=== PATIENT | male | born 1980 | race Caucasian/White ===

== ENCOUNTER 2020-04-21 11:13 | Emergency (ER) | payer MEDICAID, SELFPAY ==
--- NOTE | 2020-04-21 11:23 | XR_ITS ---
EXAMINATION: RIGHT ANKLE AND RIGHT FOOT. CLINICAL INFORMATION: Fall. COMPARISON: None TECHNIQUE: 3 views right ankle and 3 views right foot. FINDINGS: RIGHT ANKLE: There is no visible acute fracture, dislocation or subluxation seen. Small bony fragment is seen along the calcaneal-talar joint likely a small avulsion fracture with mild lateral malleolar soft tissue swelling. The ankle mortise and subtalar joints are normal.. RIGHT FOOT: There is there is a fracture line seen extending through the calcaneum suggestive of a minimally displaced calcaneal fracture. Mild soft tissue swelling seen. Rest the foot is unremarkable. XR/XR foot RT min 3V IMPRESSION: Small avulsion fracture fragment along the lateral calcaneal talar joint. Exact site of origin is not known. Mild lateral malleolar soft tissue swelling. Suspect minimally displaced oblique calcaneal fracture and soft tissue swelling on right foot exam. Recommend CT evaluation.
--- NOTE | 2020-04-21 11:23 | ED_ITS ---
HPI - Fall General Chief Complaint: Fall Stated Complaint: ANKLE INJ,FELL Time Seen by Provider: 04/21/20 11:22 Source: patient Mode of arrival: ambulatory Limitations: no limitations History of Present Illness HPI Narrative: fell into pool that had water while at work - landed hard on R ankle and heard a pop complaint: fall Onset (ago): minute(s) (just [employer]) Fall from: from height (distance) (?10 feet) Fall witnessed: yes, by bystander Place fall occurred: work Loss of consciousness: none Prolonged down time: no Symptoms prior to fall: none Context: tripped/slipped Location of injury - extremities: right: ankle Severity: severe Quality: sharp Associated symptoms (after fall): denies Related Data Previous Rx's Medication Instructions Recorded hydrocodone-acetaminophen 1 tab PO Q6H PRN #25 tab 04/21/20 Allergies Allergy/AdvReac Type Severity Reaction Status Date / Time shellfish derived Allergy Unknown Verified 04/21/20 11:22 Review of Systems Review of Systems: Constitutional : No Fever, No Chills ENT/Mouth : No Ear Pain, No Hoarseness, No sore throat Eyes: No Eye Pain, No Swelling, No Redness, No Foreign Body Cardiovascular : No Chest Pain, No SOB Respiratory : No Cough, No Dyspnea Gastrointestinal : No Nausea, No Vomiting, No Diarrhea, No abdominal Pain Genitourinary : No Dysuria, No Hematuria Musculoskeletal : positive joint pain, No Myalgias, No Joint Swelling Skin : No Skin lacerations, No rash Neuro : No Weakness, No Numbness, No Loss of Consciousness, No Dizziness, No Headache All other systems reviewed and are negative [facility] Past Medical History Attestation statement: The following information was validated with the patient. Medical History Hepatitis Social History Social History (Updated 04/21/20 @ 11:52 by Kerline Wills DO) Smoking Status: Current every day smoker Advance Directives: No Advance Directives Information Provided: No Physical Exam Vital Signs: Vital Signs: Last Vital Signs Temp 98.2 F 04/21/20 12:00 Pulse 88 04/21/20 12:00 Resp 16 04/21/20 12:00 BP 114/71 04/21/20 12:00 Pulse Ox 97 04/21/20 12:00 Body Mass Index 20.1 Appearance: Alert. Oriented X3. agitated, in pain, mild acute distress. Eyes: Pupils equal, round and reactive to light. ENT: Pharynx normal. Neck: Normal inspection. Neck supple. CVS: Normal heart rate and rhythm. Pulses normal. Respiratory: No respiratory distress. Breath sounds normal. Abdomen: Soft and nontender. Skin: Skin warm and dry. Normal skin color. Normal skin turgor. Extremities: No lower extremity edema. R ankle distal NV intact but pain around lateral malleolus and achilles area Neuro: Oriented X 3. No motor deficit. No sensory deficit. Course Course Course Narrative: CT scan ordered for better eval of calcaneal fracture significant calcaneal fracture, added on lumbar spine given heel fracture and possible concomitant injury orthopedics call 1245pm - want calcaneal views call to Les[facility] - [facility], [facility], follow up Monday with Dr. Madrid now wants to follow up with his doctor on Monday [place], given discs to go home with Procedures Orthopedic Splinting/Casting Injury #1: Side: right Lower Extremity Injury Location: foot Lower Extremity Immobilizer: posterior splint Other Orthopedic Equipment: crutches Additional Comments: significant padding placed MDM - Fall MDM Narrative Medical decision making narrative: 39 yo male with fall at work isolated R ankle injury NV intact, no obvious deformity but swelling noted, no prox fibula ttp - will need labs, xray, IV dilaudid for pain - no other injuries noted Lab Data Result diagrams: 04/21/20 12:29 04/21/20 12:28 Labs: Lab Results 04/21/20 04/21/20 04/21/20 Range/Units 12:28 12:28 12:29 WBC 15.7 H (4.8-10.8) X10*3/uL RBC 5.21 (4.60-5.80) X10*6/uL Hgb 16.0 (14.0-18.0) g/dl Hct 47.4 (42-52) % MCV 91.0 (80-98) fL MCH 30.7 (27.0-33.0) pg MCHC 33.8 (31.0-36.0) g/dl RDW 13.7 (11.0-16.0) % Plt Count 319 (160-400) X10*3/uL MPV 9.4 (9.4-12.4) fL Immature Gran % (Auto) 0.5 H (0.0-0.4) % Neut % (Auto) 80.7 H (45-73) % Lymph % (Auto) 12.4 L (20-40) % [place] % (Auto) 5.3 (2-11) % Eos % (Auto) 0.8 (0-4) % Baso % (Auto) 0.3 (0-2) % Lymph # (Auto) 2.0 (1.2-4.9) X10*3/uL [place] # (Auto) 0.8 (0.1-1.2) X10*3/uL Eos # (Auto) 0.1 (0.0-0.4) X10*3/uL Baso # (Auto) 0.0 (0.0-0.2) X10*3/uL Abs Immat Gran (auto) 0.08 H (0.00-0.03) X10*3/uL Absolute Neuts (auto) 12.7 H (2.0-8.3) X10*3/uL Absolute Nucleated RBC 0.000 (0.0-0.012) X10*3/uL Nucleated RBC % (auto) 0.0 (0.0-0.2) /100WBC Hold Blue Top SEE NOTE Sodium 145 (135-145) mmol/L Potassium 4.1 (3.3-5.1) mmol/l Chloride 107 (96-108) mmol/L Carbon Dioxide 28 (22-29) mmol/L Anion Gap 14 (12-20) BUN 11 (9-16) mg/dL Creatinine 1.11 (0.5-1.4) mg/dL Estim Creat Clear Calc 72.3 Estimated GFR > 60 Random Glucose 89 (60-115) mg/dL Calcium 8.9 (8.4-10.2) mg/dL Discharge Plan Discharge Clinical Impression: Calcaneal fracture Qualifiers: Encounter type: initial encounter Calcaneus location: body Fracture type: closed Fracture alignment: displaced Laterality: right Qualified Code(s): S92.011A - Displaced fracture of body of right calcaneus, initial encounter for closed fracture Patient Disposition: Home, Self-Care Instructions: Calcaneal Fracture (ED) Additional Instructions: return to ED for any worsening symptoms or concerns no weight bearing, wear splint until released USE CRUTCHES YOU NEED TO SEE AN ORTHOPEDIC DOCTOR SOON POSSIBLE AT THE START OF NEXT WEEK Prescriptions: New hydrocodone-acetaminophen 5-325 mg tablet 1 tab PO Q6H PRN (Reason: pain) Qty: 25 RF: 0 Stand Alone Forms: Work/School Release
--- NOTE | 2020-04-21 11:23 | XR_ITS ---
EXAMINATION: RIGHT ANKLE AND RIGHT FOOT. CLINICAL INFORMATION: Fall. COMPARISON: None TECHNIQUE: 3 views right ankle and 3 views right foot. FINDINGS: RIGHT ANKLE: There is no visible acute fracture, dislocation or subluxation seen. Small bony fragment is seen along the calcaneal-talar joint likely a small avulsion fracture with mild lateral malleolar soft tissue swelling. The ankle mortise and subtalar joints are normal.. RIGHT FOOT: There is there is a fracture line seen extending through the calcaneum suggestive of a minimally displaced calcaneal fracture. Mild soft tissue swelling seen. Rest the foot is unremarkable. XR/XR ankle RT min 3V IMPRESSION: Small avulsion fracture fragment along the lateral calcaneal talar joint. Exact site of origin is not known. Mild lateral malleolar soft tissue swelling. Suspect minimally displaced oblique calcaneal fracture and soft tissue swelling on right foot exam. Recommend CT evaluation.
[2020-04-21 11:25] VITALS: BP 118/78; PULSE 82; RESP 26; TEMP 36.7; O2SAT 100; BMI 20.1
[2020-04-21] MEDS: ondansetron HCL 4 MG/2 ML VIAL IVPUSH (11:57)
[2020-04-21] MEDS: HYDROmorphone HCl 1 MG/ML SYRINGE IVPUSH (11:57)
[2020-04-21] MEDS: 0.9 % Sodium Chloride 1,000 ML 999 ML IVCONT (11:57)
[2020-04-21 12:00] VITALS: BP 114/71; PULSE 88; RESP 16; TEMP 36.8; O2SAT 97
--- NOTE | 2020-04-21 12:09 | CT_ITS ---
EXAMINATION: CT FOOT WITHOUT CONTRAST, RIGHT CLINICAL INFORMATION: fall eval fracture COMPARISON: Radiograph from the same date. TECHNIQUE: Multidetector image imaging was obtained through the right foot without contrast. Multiplanar reformatted images in coronal and sagittal orientations were submitted. This CT examination was performed using dose optimization techniques as appropriate, variously including the following: *Automated exposure control *Adjustment of mA and/or kV according to patient size (this includes techniques or standardized protocols for targeted exams where dose is matched to indication/reason for exam; i.e. extremities or head) *Use of iterative reconstruction technique DLP: 169 mGy-cm FINDINGS: There is a markedly comminuted fracture of the calcaneus with comminution and depression at the lateral half of the posterior facet. Comminuted fracture lines also extend through the constant fragment at the sustentaculum talus as well as the anterior process of the calcaneus, extending into the far lateral margin of the calcaneocuboid joint and, to a lesser extent, the dorsal margin. There is significant osseous fragmentation with particulate bone at the posterior lateral aspect of the posterior facet. This fracture has the appearance of a Fong type II B, though there is depression of the lateral fragment of the posterior facet by up to 6 mm anteriorly as well as significant comminution along the articular surface posterolaterally, making this a type IV fracture. Medially, fracture lines extend both through the base of the sustentaculum talus and through the process itself. There is minimal cortical offset at the articular surface. The articular surface at the calcaneocuboid joint is not significant displaced. The talus appears intact, though a punctate chip fracture along the posterior margin and lateral margins of the articular surface at the posterior facet is possible. The talocrural joint appears well-preserved. Chopart, naviculocuneiform, and midfoot joints are unremarkable. No fracture or malalignment at the MTP or interphalangeal joints. Soft tissues are swollen at the hindfoot with subcutaneous edema. Numerous particulate bone fragments are present at the posterior aspect of the joint adjacent to the flexor hallucis longus tendon. Laterally, the fracture fragments from the calcaneal body protrudes into the region of the sural nerve. There is significant talocrural joint effusion. CT/CT foot RT wo con IMPRESSION: Markedly comminuted calcaneal fracture with depression of the lateral half of the posterior facet, likely constituting a Fong type IV fracture. Numerous particulate, punctate ossific fragments are present at the posterior aspect of the subtalar joint
--- NOTE | 2020-04-21 12:32 | XR_ITS ---
EXAMINATION: CALCANEUS X-RAY CLINICAL INFORMATION: Fracture COMPARISON: Previous right foot and ankle x-ray and CT from earlier the same day TECHNIQUE: 2 views of the medial FINDINGS: There is a comminuted displaced fracture of the calcaneus unchanged from previous exams. There is overlying soft tissue swelling. XR/XR lumbar spine 2-3V IMPRESSION: Displaced comminuted calcaneal fracture similar to previous exams. EXAMINATION: Lumbar spine x-ray CLINICAL INFORMATION: Pain. Fall. COMPARISON: None. TECHNIQUE: 3 views of the lumbar spine FINDINGS: Bone alignment is normal. No fracture or dislocation is seen. Disc spaces are normal. Paraspinal soft tissues are normal. IMPRESSION: Unremarkable examination.
[2020-04-21 12:34] LABS: MANUAL DIFF FLAG NO
[2020-04-21 12:43] LABS: Basophils Percent Auto 0.3 % (0-2); Eosinophils Absolute Auto 0.1 X10*3/uL (0.0-0.4); Eosinophils Percent Auto 0.8 % (0-4); Hematocrit 47.4 % (42-52); Imm Gran Abs Auto 0.08 X10*3/uL (0.00-0.03); Imm Gran Pct Auto 0.5 % (0.0-0.4); Lymphocytes Percent Auto 12.4 % (20-40); Mean Corpuscular HGB Conc 33.8 g/dl (31.0-36.0); Mean Corpuscular Hemoglobin 30.7 pg (27.0-33.0); Mean Platelet Volume 9.4 fL (9.4-12.4); Monocytes Absolute Auto 0.8 X10*3/uL (0.1-1.2); Monocytes Percent Auto 5.3 % (2-11); Neutrophils Absolute Auto 12.7 X10*3/uL (2.0-8.3); Neutrophils Percent Auto 80.7 % (45-73); Platelet Count 319 X10*3/uL (160-400); Red Blood Count 5.21 X10*6/uL (4.60-5.80); Red Cell Distribution Width 13.7 % (11.0-16.0); White Blood Count 15.7 X10*3/uL (4.8-10.8)
--- NOTE | 2020-04-21 12:48 | XR_ITS ---
EXAMINATION: CALCANEUS X-RAY CLINICAL INFORMATION: Fracture COMPARISON: Previous right foot and ankle x-ray and CT from earlier the same day TECHNIQUE: 2 views of the medial FINDINGS: There is a comminuted displaced fracture of the calcaneus unchanged from previous exams. There is overlying soft tissue swelling. XR/XR calcaneus RT min 2V IMPRESSION: Displaced comminuted calcaneal fracture similar to previous exams. EXAMINATION: Lumbar spine x-ray CLINICAL INFORMATION: Pain. Fall. COMPARISON: None. TECHNIQUE: 3 views of the lumbar spine FINDINGS: Bone alignment is normal. No fracture or dislocation is seen. Disc spaces are normal. Paraspinal soft tissues are normal. IMPRESSION: Unremarkable examination.
[2020-04-21 12:55] LABS: Anion Gap 14 (12-20); Blood Urea Nitrogen 11 mg/dL (9-16); Calcium 8.9 mg/dL (8.4-10.2); Carbon Dioxide 28 mmol/L (22-29); Chloride 107 mmol/L (96-108); Creatinine Clr Calc Pharmacy 72.3; Estimated Glomerular Filt Rate > 60; Glucose Random 89 mg/dL (60-115); Potassium 4.1 mmol/l (3.3-5.1); Sodium 145 mmol/L (135-145)
[2020-04-21] MEDS: oxyCODONE HCl Immed Release 5 MG TABLET 10 MG PO (14:17)
== END 2020-04-21 14:39 | disposition home or self-care (01) ==
PROVIDERS: Emergency Provider Emergency Medicine
DX: S92.011A Displaced fracture of body of right calcaneus, initial encounter for closed fracture (principal); M25.571 Pain in right ankle and joints of right foot; M79.671 Pain in right foot; W01.10XA Fall on same level from slipping, tripping and stumbling with subsequent striking against unspecified object, initial encounter; Y93.01 Activity, walking, marching and hiking; Y92.9 Unspecified place or not applicable; Y99.9 Unspecified external cause status; F17.200 Nicotine dependence, unspecified, uncomplicated; Z71.6 Tobacco abuse counseling
CPT/HCPCS: 29515; 36415; 72100; 73610; 73630; 73650; 73700; 80048; 85025; 96361; 96374; 96375; 99283; 99284; J1170; J2405